=== PATIENT | male | born 1990 | race African-American/Black ===

== ENCOUNTER 2020-01-25 16:43 | Emergency (ER) | payer OTHER ==
[~2020-01-25] VITALS: Ht 188 cm; Wt 129.3 kg
--- NOTE | 2020-01-25 17:05 | NUR ---
ERMD at bedside for MSE
[2020-01-25 17:13] VITALS: BP 135/85
--- NOTE | 2020-01-25 17:13 | NUR ---
Patient discharged to home in stable conditon. Written and verbal after care instructions given. Patient verbalizes understanding of instructions. Patient ambulated with stable gait.
== END 2020-01-25 17:14 | disposition home or self-care (01) ==
LOC: ER 16:43
DX: J40 Bronchitis, not specified as acute or chronic (principal); E11.9 Type 2 diabetes mellitus without complications; Z79.899 Other long term (current) drug therapy
CPT/HCPCS: A4663